=== PATIENT | male | born 1945 | race Caucasian/White ===

== ENCOUNTER 2022-01-31 13:39 | Outpatient (CLI) | payer MEDICARE, BC, SELFPAY ==
[2022-01-31 15:50] VITALS: BP 152/81; PULSE 81
[2022-01-31] MEDS: PERFLUTREN LIPID MICROSPHERES 2 ML VIAL IV (16:05)
--- NOTE | 2022-01-31 16:27 | PM.ST ---
Stress Test Note Date Date Seen: 01/31/22 Date of test: 01/31/22 Providers Referring provider: Argelia Cassidy Primary care provider: Argelia Cassidy Stress test physician: Ethan Cleveland Stress Test Note Stress test ordered: Stress Echo Indication for test: Shortness of breath, coronary disease Stress test medicine: [facility] Results discussion: Patient is a very nice 68-year-old gentleman who presents for the above test the cardiac stress test medical history form is reviewed, risks benefits and side effects of this test were discussed in detail, pretest EKG shows lots of artifact, but right bundle branch block configuration is noted. With some diffuse ST wave changes noted throughout all the leads. Rhythm is sinus, with a ventricular rate of 65 and a blood pressure 157/79. Standard Bridger protocol is employed over a time course of 5 minutes 51 seconds. Test is terminated because of fatigue, target predicted was obtained. Patient had no chest pain some mild fatigue, review of the EKG showed no obvious dysrhythmias, there is no ST wave changes suggestive of ischemia, patient recovered normally Impression: Negative electrographic portion of stress echo Follow up suggested: Follow-up with primary care suggested, review of the cardiology read of the echo is also suggested, patient left this testing facility in good condition. Were no complications.
== END 2022-01-31 13:40 | disposition home or self-care (01) ==
LOC: STRESS 13:40
PROVIDERS: PCP Family Medicine; Visit Provider Family Medicine
DX: R06.02 Shortness of breath (principal); I25.10 Atherosclerotic heart disease of native coronary artery without angina pectoris
CPT/HCPCS: 93016; 93325; 93351; Q9957

== ENCOUNTER 2022-06-06 09:44 | Outpatient (CLI) | payer MEDICARE, BC, SELFPAY ==
--- OUTSIDE RECORDS SUMMARY | 2022-06-06 09:50 | XMS_ITS | Clinical Summary ---
:1945 Author Organization [facility] [place] [address] Care Team Providers Name Role Phone Pcp, No Primary Care Provider Unavailable Allergies No known active allergies Medications Medication Sig Dispensed Refills Start Date End Date Status benazepril (LOTENSIN) Take 1 tablet by 0 07/07/2015 Active 20 mg tablet mouth once daily. furosemide (LASIX) 20 Take 1 tablet by 0 07/07/2015 Active mg tablet mouth every morning. metoprolol tartrate Take 1 tablet by 0 07/07/2015 Active (LOPRESSOR) 25 mg mouth 2 times tablet daily. potassium chloride Take 1 tablet by 0 07/07/2015 Active (K-DUR, KLOR-CON M10) mouth 2 times 10 mEq tablet daily with meals. atorvastatin (LIPITOR) 0 09/17/2017 Active 80 mg tablet aspirin (ECOTRIN) 81 mg Take 1 tablet by 0 9 Active enteric coated tablet mouth once daily with a meal. amLODIPine (NORVASC) 10 0 09/20/2020 Active mg tablet alfuzosin (UROXATRAL) Take 1 Tablet (10 90 Tablet 3 12/07/2021 Active 10 mg Sustained-Release mg) by mouth once tabletIndications: daily with a Benign non-nodular meal. 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 07/07/2015 symptoms Adjustment disorder with mixed anxiety and depressed m ood 04/14/2015 Social History Tobacco Use Types Packs/Day Years Used Date Smoking Tobacco: Never Smokeless Tobacco: Never Tobacco Cessation: Counseling Given: Yes Alcohol Use Standard Drinks/Week Comments Yes 0 (1 standard drink = 0.6 oz pure alcoho l) 2 drinks daily Sex Assigned at Date Recorded Not on file Obstetrics History Last Filed Vital Signs Vital Sign Reading Time Taken Comments Blood Pressure 152/76 11/29/2020 8:48 AM CDT Pulse 58 11/29/2020 8:48 AM CDT Temperature 36.4 ??C (97.5 ??F) 11/24/2019 8:24 AM CDT Respiratory Rate 18 07/29/2018 11:15 AM DIRECTOR OF ACCREDITATION Oxygen Saturation 95% 11/29/2020 8:48 AM CDT Inhaled Oxygen Concentration - - Weight 105 kg (231 lb 8 oz) 11/29/2020 8:48 AM CDT Height 177.8 cm (5' 10) 07/07/2015 8:08 AM DIRECTOR OF ACCREDITATION Body Mass Index 33.22 07/07/2015 8:08 AM DIRECTOR OF ACCREDITATION Plan of Treatment Health Maintenance Due Date Last Done Comments COVID-19 vaccine series (#1) 06/03/1946 Tdap 12/02/1954 Hepatitis C screening for age 18-79 12/02/1961 Tetanus booster 1963 Zoster (shingles) series for age 50+ (1 of 2) 12/02/1993 Medicare Wellness for age 65+ 12/02/2008 Pneumococcal series for age 65+ (1 - PCV) 12/02/2008 BMI (ht and wt on same day) for age 18+ 07/07/2016 07/07/19 16 Depression screening for age 12+ 07/14/2016 07/14/2015 Influenza for age 65+ 02/23/2022 Results Not on filefrom Last 3 Months Insurance Payer Benefit Plan / Subscriber ID Effective Dates Phone Addre ss Type Group BLUE CROSS BLUE CROSS [id number] 2016-Present [address] [address] [place], [place] [phone] Care Teams Underwater Welder Relationship Specialty Start Date End Date Pcp, No PCP - General 08/05/12 .
--- NOTE | 2022-06-06 10:00 | CRLHL7_ITS ---
For Patients: As a result of the Century Cures Act, medical imaging exams and procedure reports are released immediately into your electronic medical record. You may view this report before your referring provider. If you have questions, please contact your health care provider. Indication: MILD PERSISTENT ASTHMA UNCOMPLICATED. HX OF BLADDER OF CANCER Technique: Noncontrast CT chest including inspiration supine high-resolution images. Please note that all CT scans at this facility use dose modulation, iterative reconstruction, and/or weight-based dosing when appropriate to reduce radiation dose to as low as reasonably achievable. Comparison: 02/11/2015 Findings: Severe degenerative changes are present at both shoulders. Vascular calcifications are present including coronary artery calcifications. Sub centimeters simple cyst within the right hepatic lobe noted. Adrenal glands are stable. Cardiomegaly. No mediastinal, hilar or axillary adenopathy. No pleural or pericardial effusion. No suspicious pulmonary nodule. Mild linear subsegmental scarring within the lower lobes. Minimal thickening of the intralobular septa noted within the periphery of both lower lobes at both lung bases. Curvilinear scarring also present within medial aspect of the right lower lobe associated with prominent right anterolateral thoracic spine osteophytes. No pneumothorax. No pulmonary edema. Impression: Mild scarring within both lower lobes and mild interstitial fibrosis. Mild COPD/emphysema suspected. No acute infiltrate. Cardiomegaly with coronary artery calcifications. No CHF. Please note that all CT scans at this facility use dose modulation, iterative reconstruction, and/or weight-based dosing when appropriate to reduce radiation dose to as low as reasonably achievable. Dictated by Gordy Cotton MD @ 06/06/2022 10:59:13 AM (Electronically Signed)
== END 2022-06-06 09:45 | disposition home or self-care (01) ==
LOC: CT 09:46
PROVIDERS: PCP Family Medicine; Visit Provider Internal Medicine Pulmonary Disease
DX: R06.2 Wheezing (principal); J44.9 Chronic obstructive pulmonary disease, unspecified; J84.10 Pulmonary fibrosis, unspecified
CPT/HCPCS: 71250

== ENCOUNTER 2022-06-21 07:25 | Outpatient (CLI) | payer MEDICARE, BC, SELFPAY ==
[2022-06-21 10:45] LABS: Chloride* 104 mmol/L (96-114); Sodium* 142 mmol/L (135-149)
[2022-06-21 10:46] LABS: Potassium* 3.7 mmol/L (3.6-5.1)
[2022-06-21 10:48] LABS: Blood Urea Nitrogen* 13 mg/dL (7-30); Carbon Dioxide* 32 mmol/L (20-32); Cholesterol* 132 mg/dL (90-199); Creatinine* 0.7 mg/dL (0.5-1.5); Estimated Glomerular Filt Rate 94 ml/min; Glucose* 126 mg/dL (60-115)
[2022-06-21 10:49] LABS: Calcium* 9.3 mg/dL (8.4-10.6); HDL Cholesterol* 45 mg/dL (>=40); LDL Cholesterol Calculated 64 mg/dL (<100); Triglycerides* 113 mg/dL (40-149)
[2022-06-23 13:18] LABS: PSA Diagnostic* 0.48 ng/mL (0.10-4.00)
== END 2022-06-21 07:26 | disposition home or self-care (01) ==
LOC: NFLDREF 07:25
PROVIDERS: PCP Family Medicine; Visit Provider Family Medicine
DX: Z00.00 Encounter for general adult medical examination without abnormal findings (principal); E66.9 Obesity, unspecified; R73.03 Prediabetes; C61 Malignant neoplasm of prostate; I10 Essential (primary) hypertension
CPT/HCPCS: 80048; 80061; 84153

== ENCOUNTER 2023-06-20 08:25 | Outpatient (CLI) | payer MEDICARE, BC, SELFPAY | END 2023-06-20 08:26 | disposition home or self-care (01) | LOC: NFLDREF 06-21 09:28 | PROVIDERS: PCP Family Medicine; Referring Provider Family Medicine; Visit Provider Family Medicine | DX: E78.5 Hyperlipidemia, unspecified (principal); R73.03 Prediabetes; I10 Essential (primary) hypertension; Z12.5 Encounter for screening for malignant neoplasm of prostate | CPT/HCPCS: 80053; 80061; 84153 ==

== ENCOUNTER 2023-08-06 13:49 | Outpatient (CLI) | payer MEDICARE, BC, SELFPAY ==
--- OUTSIDE RECORDS SUMMARY | 2023-08-06 13:51 | XMS_ITS | Clinical Summary ---
Author Name Unknown Organization [facility] Address [place], [place] [address] Care Team Providers Care X Ray Inspector Name Role Phone Pcp, No Primary Care Provider Unavailabl e Allergies No known active allergies Medications Medication Sig Dispensed Refills Start Date End Date Status benazepril (LOTENSIN) 20 mg tablet Take 1 tablet by mouth once daily. 0 07/07/2015 Active furosemide (LASIX) 20 mg tablet Take 1 tablet by mouth every morning. 0 07/07/2015 Active metoprolol tartrate (LOPRESSOR) 25 mg tablet Take 1 tablet by mouth 2 times daily. 0 07/07/2015 Active potassium chloride (K-DUR, KLOR-CON M10) 10 mEq tablet Take 1 tablet by mouth 2 times daily with meals. 0 07/07/2015 Active atorvastatin (LIPITOR) 80 mg tablet 0 09/17/2017 Active aspirin (ECOTRIN) 81 mg enteric coated tablet Take 1 tablet by mouth once daily with a meal. 0 07/29/2018 Active amLODIPine (NORVASC) 10 mg tablet 0 09/20/2020 Active alfuzosin (UROXATRAL) 10 mg Sustained-Release tabletIndications:Riccardo gn non-nodular prostatic hyperplasia without lower urinary tract symptoms Take 1 Tablet (10 mg) by mouth once daily with a meal. 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 urinary tract symptoms 07/07/2015 Adjustment disorder with mixed anxiety and depre ssed mood 04/14/2015 Social History Tobacco Use Types Packs/Day Years Used Date Smoking Tobacco: Never Smokeless Tobacco: Never Tobacco Cessation:Counseling Given: Yes Alcohol Use Standard Drinks/Week Comments Yes 0 (1 standard drink = 0.6 oz pur e alcohol) 2 drinks daily Sex and Gender Information Value Date Recorded Sex Assigned at Not on file Gender Identity Not on file Sexual Orientation Not on file Obstetrics History Last Filed Vital Signs Vital Sign Reading Time Taken Comments Blood Pressure 152/76 11/29/2020 8:48 AM CDT Pulse 58 11/29/2020 8:48 AM CDT Temperature 36.4 ??C (97.5 ??F) 11/24/2019 8:24 AM CD T Respiratory Rate 18 07/29/2018 11:15 AM BLENDING PLANT OPERATOR Oxygen Saturation 95% 11/29/2020 8:48 AM CDT Inhaled Oxygen Concentration - - Weight 105 kg (231 lb 8 oz) 11/29/2020 8:48 AM C DT Height 177.8 cm (5' 10) 07/07/2015 8:08 AM BLENDING PLANT OPERATOR Body Mass Index 33.22 07/07/2015 8:08 AM BLENDING PLANT OPERATOR Plan of Treatment Upcoming Encounters Date Type Department Care Team (Late st Contact Info) Description 08/06/2023 2:00 PM BLENDING PLANT OPERATOR Ancillary Procedure [facility] [address] [place] [address] Health Maintenance Due Date Last Done Comments COVID-19 vaccine series (#1) 06/03/1946 Tdap 12/02/1954 Hepatitis C screening for age 18-79 12/02/1961 Tetanus booster 1963 Zoster (shingles) series for age 50+ (1 of 2) 12/02/18 94 Medicare Wellness for age 65+ 12/02/2008 Pneumococcal series for age 65+ (1 of 1 - PCV) 009 BMI (ht and wt on same day) for age 18+ 07/07/2016 0 07/07/2015 Depression screening for age 12+ 07/14/2016 07/14/19 16 Influenza for age 65+ 02/23/2023 Care Teams X Ray Inspector Relationship Specialty Start Date End Date Pcp, No . PCP - General 08/05/12
--- NOTE | 2023-08-06 15:00 | XR_ITS ---
Final Report Patient: MELISSA GARCIA Facility:?[facility] Patient ID:?[id number] Site Patient ID:?[id number]. Site :?1945 Study:?XRay Chest 2 VIEW-08/06/2023 5:30:37 PM Ordering Physician:JAKE Final Report: INDICATION: SOB. AORTIC VALVE INSUFFICIENCY TECHNIQUE: Chest 2 views COMPARISON: CT 06/06/2022, chest x-ray 12/01/2021 FINDINGS: Patchy areas of scarring are present bilaterally. Lung volumes are similar. Tortuosity of the aorta. No infiltrate or edema. No effusion or pneumothorax. Hypertrophic degenerative changes both shoulders. IMPRESSION: No CHF. Dictated by Gordy Cotton MD @ 08/10/2023 5:33:29 AM (Electronic Signature)
== END 2023-08-06 13:50 | disposition home or self-care (01) ==
PROVIDERS: PCP Family Medicine; Visit Provider Internal Medicine Pulmonary Disease
DX: R06.02 Shortness of breath (principal); I35.1 Nonrheumatic aortic (valve) insufficiency; I51.7 Cardiomegaly; I34.0 Nonrheumatic mitral (valve) insufficiency
CPT/HCPCS: 71046; 93306

== ENCOUNTER 2023-09-17 07:53 | Outpatient (CLI) | payer MEDICARE, BC, SELFPAY | END 2023-09-17 07:54 | disposition home or self-care (01) | LOC: NFLDREF 09-19 06:18 | PROVIDERS: PCP Family Medicine; Referring Provider Family Medicine; Visit Provider Family Medicine | DX: E11.9 Type 2 diabetes mellitus without complications (principal); R53.83 Other fatigue; I10 Essential (primary) hypertension | CPT/HCPCS: 80048; 82043; 82570 ==

== ENCOUNTER 2024-02-20 08:32 | Outpatient (CLI) | payer MEDICARE, BC, SELFPAY ==
--- OUTSIDE RECORDS SUMMARY | 2024-02-22 15:42 | XMS_ITS | Clinical Summary ---
Author Organization [facility] [facility] Address [place], [place] [address] Care Team Providers Care Civil Structural Engineer Name Role Phone Pcp, No Primary Care [...] times daily with meals. 0 07/07/2015 Active aspirin (ECOTRIN) 81 mg enteric coated tablet Take 1 tablet by mouth once daily with a meal. 0 07/29/2018 Active alfuzosin (UROXATRAL) 10 mg Sustained-Release tabletIndications:Riccardo gn non-nodular prostatic hyperplasia without lower urinary tract symptoms Take 1 Tablet (10 mg) by mouth once daily with a meal. 90 Tablet 3 12/07/2021 Active atorvastatin (LIPITOR) 80 mg tablet Take 1 Tablet (80 mg) by mouth at bedtime. 09/19/2023 Active amLODIPine (NORVASC) 5 mg tabletIndications:HTN (hypertension) Take 1 Tablet (5 mg) by mouth once daily. 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 lower urinary tract symptoms 07/07/2015 Adjustment disorder with mixed anxiety and depre ssed mood 04/14/2015 Encounters Date Type Department Care Team Description 01/22/2024 Refill [facility] [place] [address] [place] [phone] Myriam Saucedo MD Refill Request (Montelukast) 01/02/2024 Refill [facility] [place] [address] [place] [phone] Myriam Saucedo MD Refill Request (Albuterol Hfa) from Last 3 Months Social History Tobacco Use Types Packs/Day Years Used Date Smoking Tobacco: Never Smokeless Tobacco: Never Tobacco Cessation:Counseling Given: Yes Alcohol Use Standard Drinks/Week Comments Yes 0 (1 standard drink = 0.6 oz pur e alcohol) 2 drinks daily Social Connections Answer Date Recorded Frequency of Communication with Friends and Fami ly Not on file 09/21/2023 Sex and Gender Information Value Date Recorded Sex Assigned at Not on file Gender Identity Not on file Sexual Orientation Not on file Obstetrics History Last Filed Vital Signs Vital Sign Reading Time Taken Comments Blood Pressure 140/72 09/21/2023 4:18 PM CDT Pulse 40 09/21/2023 4:18 PM CDT Temperature 36.4 ??C (97.5 ??F) 11/24/2019 8:24 AM CD T Respiratory Rate 14 09/21/2023 4:18 PM CDT Oxygen Saturation 95% 11/29/2020 8:48 AM CDT Inhaled Oxygen Concentration - - Weight 119.7 kg (264 lb) 09/21/2023 4:18 PM CDT Height 177.8 cm (5' 10) 07/07/2015 8:08 AM MANAGER ERP Body Mass Index 37.88 07/07/2015 8:08 AM MANAGER ERP Plan of Treatment Upcoming Encounters Date Type Department Care Team (Late st Contact Info) Description 04/24/2024 11:05 AM CDT Office Visit [facility] [place] [address] [facility] [address] [place] [phone] Myriam Saucedo MD [address] [facility] [address] [place] [address] Health Maintenance Due Date Last Done Comments Pneumococcal series for age 65+ (1 of 2 - PCV) 950 Tdap 12/02/1954 Tetanus booster 1963 Zoster (shingles) series for age 50+ (1 of 2) 12/02/18 94 Medicare Wellness for age 65+ 12/02/2008 BMI (ht and wt on same day) for age 18+ 07/07/2016 0 07/07/2015 Depression screening for age 12+ 07/14/2016 07/14/19 16 COVID-19 vaccine series (2022-24 season) 3 Influenza for age 65+ 02/24/2024 Care Teams Civil Structural Engineer Relationship Specialty Start Date End Date Pcp, No . PCP - General 08/05/12
== END 2024-02-20 08:33 | disposition home or self-care (01) ==
LOC: NFLDREF 02-22 15:41
PROVIDERS: PCP Family Medicine; Referring Provider Family Medicine; Visit Provider Family Medicine
DX: I10 Essential (primary) hypertension (principal); E11.9 Type 2 diabetes mellitus without complications
CPT/HCPCS: 80053

== ENCOUNTER 2024-03-17 09:50 | Outpatient (CLI) | payer MEDICARE, BC, SELFPAY ==
--- OUTSIDE RECORDS SUMMARY | 2024-03-17 09:53 | XMS_ITS | Clinical Summary ---
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 90 Tablet 3 12/07/2021 Active atorvastatin (LIPITOR) 80 mg tablet Take 1 Tablet (80 mg) by mouth at bedtime. 09/19/2023 Active amLODIPine (NORVASC) 5 mg tabletIndications: HTN (hypertension) Take 1 Tablet (5 mg) by mouth once daily. 90 Tablet 3 09/21/2023 Active montelukast (SINGULAIR) 10 mg tabletIndications: Mild persistent asthma in adult without complication TAKE 1 TABLET BY MOUTH EVERY DAY IN THE EVENING 90 Tablet 02/05/2024 Active albuterol HFA (PRO-AIR; VENTOLIN; PROVENTIL) 90 mcg/actuation inhalerIndications :Chronic obstructive pulmonary disease, unspecified COPD type (HC) INHALE 2 PUFFS BY MOUTH EVERY 4 TO 6 HOURS NEEDED 6.7 g 03/13/2024 Active albuterol HFA (PRO-AIR; VENTOLIN; PROVENTIL) 90 mcg/actuation inhalerIndications :Chronic obstructive pulmonary disease, unspecified COPD type (HC) INHALE 2 PUFFS BY MOUTH EVERY 4 TO 6 HOURS NEEDED 1 Each 3 01/02/2024 03/13/2024 Discontinued Active Problems Problem Noted Date Diagnosed Date Malignant neoplasm of urinary bladder 07/07/2015 Benign non-nodular prostatic hyperplasia without lower urinary tract symptoms 07/07/2015 Adjustment disorder with mixed anxiety and depre ssed mood 04/14/2015 Encounters Date Type Department Care Team Description 03/13/2024 Refill [facility] [place] [address] [place] [phone] Jerry Slaughter MD Refill Request (Albuterol Hfa) 01/22/2024 Refill [facility] [place] [address] [place] [phone] Myriam Saucedo MD Refill Request (Montelukast) 01/02/2024 Refill [facility] [place] [address] [place] [phone] Myriam Saucedo MD Refill Request (Albuterol Hfa) [...] 177.8 cm (5' 10) 07/07/2015 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 Body Mass Index 37.88 07/07/2015 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 Plan of Treatment Upcoming Encounters Date Type Department Care Team (Late st Contact Info) Description 04/24/2024 11:05 AM CDT Office Visit [facility] [place] [address] [place] [phone] Myriam Saucedo MD [address] [place] [address] Health Maintenance Due Date Last Done Comments Pneumococcal series for age 65+ (1 of 2 - PCV) 950 Tdap 12/02/1954 Tetanus booster 1963 Zoster (shingles) series for age 50+ (1 of 2) 12/02/18 94 RSV vaccine for adults or pr egnancy (1 - 1-dose 60+ series) 2003 Medicare Wellness for age 65+ 12/02/2008 BMI (ht and wt on same day) for age 18+ 07/07/2016 0 07/07/2015 Depression screening for age 12+ 07/14/2016 07/14/19 16 COVID-19 vaccine series (2022-24 season) 4 Influenza for age 65+ 02/24/2024 Care Teams Under Sheriff Relationship Specialty Start Date End Date Pcp, No . PCP - General 08/05/12
--- NOTE | 2024-03-17 11:42 | W.ANESCHARGE ---
Anesthesia Charges Start Date/Time Anesthesia Start Date: 03/17/24 Anesthesia Start Time: 11:06 Stop Date/Time Anesthesia Stop Date: 03/17/24 Anesthesia Stop Time: 11:39
--- NOTE | 2024-03-17 12:08 | W.ANESCHARGE ---
Anesthesia Charges Start Date/Time Anesthesia Start Date: 03/17/24 Anesthesia Start Time: 11:06 Stop Date/Time Anesthesia Stop Date: 03/17/24 Anesthesia Stop Time: 11:39
== END 2024-03-17 09:51 | disposition home or self-care (01) ==
LOC: OP CLINIC 09:51
PROVIDERS: PCP Family Medicine; Visit Provider Surgery
DX: Z12.11 Encounter for screening for malignant neoplasm of colon (principal); D12.0 Benign neoplasm of cecum; D12.5 Benign neoplasm of sigmoid colon; D12.8 Benign neoplasm of rectum; K57.30 Diverticulosis of large intestine without perforation or abscess without bleeding; Z86.010 Personal history of colon polyps
CPT/HCPCS: 00811; 45385; 88305; J2704

== ENCOUNTER 2024-06-26 09:40 | Outpatient (CLI) | payer MEDICARE, BC, SELFPAY | END 2024-06-26 09:41 | disposition home or self-care (01) | LOC: NFLDREF 06-28 11:38 | PROVIDERS: PCP Family Medicine; Referring Provider Family Medicine; Visit Provider Family Medicine | DX: E78.2 Mixed hyperlipidemia (principal); E11.9 Type 2 diabetes mellitus without complications; N40.0 Benign prostatic hyperplasia without lower urinary tract symptoms; I10 Essential (primary) hypertension; R53.83 Other fatigue; E78.5 Hyperlipidemia, unspecified; Z12.5 Encounter for screening for malignant neoplasm of prostate | CPT/HCPCS: 80053; 80061; 82043; 82570; G0103 ==

== ENCOUNTER 2024-07-14 08:41 | Outpatient (CLI) | payer MEDICARE, BC, SELFPAY | END 2024-07-14 08:42 | disposition home or self-care (01) | LOC: RAD 08:42 | PROVIDERS: PCP Family Medicine; Visit Provider Internal Medicine Cardiovascular Disease | DX: I77.810 Thoracic aortic ectasia (principal); I51.7 Cardiomegaly; I35.1 Nonrheumatic aortic (valve) insufficiency; I34.0 Nonrheumatic mitral (valve) insufficiency; I07.1 Rheumatic tricuspid insufficiency | CPT/HCPCS: 93306 ==

== ENCOUNTER 2024-07-29 08:02 | Outpatient (CLI) | payer MEDICARE, BC, SELFPAY ==
[2024-07-29] MEDS: REGADENOSON 0.4 MG/5 ML SYRINGE IVP (09:58)
[2024-07-29 09:59] VITALS: BP 188/122; PULSE 94; RESP 18
[2024-07-29] MEDS: SODIUM CHLORIDE 0.9 % (FLUSH) 10 ML SYRINGE IVF (09:59)
--- NOTE | 2024-07-29 11:15 | W.PM.STED ---
Stress Test Note Date Date Seen: 07/29/24 Date of test: 07/29/24 Providers Primary care provider: Argelia Cassidy Stress test physician: Ethan Cleveland Stress Test Note Stress test ordered: Stress Myoview Indication for test: Atherosclerotic heart disease Stress test medicine: None Results discussion: This very nice 78-year-old gentleman presents for the above test after discussion the risks benefits and side effects he would like to proceed, stress Myoview was ordered. Cardiac stress test medical history form is reviewed in detail. Pretest EKG shows a lot of artifact, ventricular rate is 89, rhythm is indeterminate due to the artifact. Blood pressure 193 and 104, standard walking Myoview protocol is achieved over a time period of 5 minute. He achieved a metabolic equivalent of 1.6 Mets with a maximum heart rate of 115, it was stated that he got to 143, but artifact interfered with this. Test is terminated because of shortness of breath and fatigue. He did not develop any chest pain. No appreciable ST wave changes are noted, but test is indeterminate due to artifact. Test is also sub maximal. Impression: Negative electrographic portion of stress test, test is of questionable use due to the fact that is sub maximal, and lots artifact. Follow up suggested: Await test results, nuclear portion will be read by Cardiology and nuclear Medicine. Clinical correlation with this will be needed.
== END 2024-07-29 10:01 | disposition home or self-care (01) ==
LOC: STRESS 08:04
PROVIDERS: PCP Family Medicine; Visit Provider Family Medicine
DX: I25.10 Atherosclerotic heart disease of native coronary artery without angina pectoris (principal)
CPT/HCPCS: 78452; 93016; 93017; A9500; J2785

== ENCOUNTER 2024-10-16 07:49 | Outpatient (CLI) | payer MEDICARE, BC, SELFPAY | END 2024-10-16 07:50 | disposition home or self-care (01) | LOC: CT 07:50 | PROVIDERS: PCP Family Medicine; Visit Provider Orthopaedic Surgery Sports Medicine | DX: M19.012 Primary osteoarthritis, left shoulder (principal); Z01.818 Encounter for other preprocedural examination | CPT/HCPCS: 73200 ==

== ENCOUNTER 2024-10-30 09:57 | Outpatient (CLI) | payer MEDICARE, BC, SELFPAY | END 2024-10-30 09:58 | disposition home or self-care (01) | LOC: NFLDREF 09:58 | PROVIDERS: PCP Family Medicine; Visit Provider Family Medicine | DX: Z00.01 Encounter for general adult medical examination with abnormal findings (principal); E78.2 Mixed hyperlipidemia | CPT/HCPCS: 80048 ==

== ENCOUNTER 2024-11-06 14:39 | Outpatient (CLI) | payer MEDICARE, BC, SELFPAY ==
[2024-11-06 15:17] LABS: Chloride* 101 mmol/L (96-114); Sodium* 141 mmol/L (135-149)
[2024-11-06 15:20] LABS: Blood Urea Nitrogen* 14 mg/dL (7-30); Calcium* 9.2 mg/dL (8.4-10.6); Carbon Dioxide* 32 mmol/L (20-32); Creatinine* 0.8 mg/dL (0.5-1.5); Estimated Glomerular Filt Rate 89 ml/min; Glucose* 143 mg/dL (60-115); Potassium* 3.2 mmol/L (3.6-5.1)
[2024-11-06 15:29] LABS: Anion Gap 8 mEq/L (7-15)
== END 2024-11-06 14:40 | disposition home or self-care (01) ==
LOC: LAB 14:42
PROVIDERS: PCP Family Medicine; Visit Provider Internal Medicine
DX: I48.0 Paroxysmal atrial fibrillation (principal); Z13.6 Encounter for screening for cardiovascular disorders; I25.10 Atherosclerotic heart disease of native coronary artery without angina pectoris; I10 Essential (primary) hypertension; E78.2 Mixed hyperlipidemia; E11.9 Type 2 diabetes mellitus without complications; Z79.84 Long term (current) use of oral hypoglycemic drugs; J45.30 Mild persistent asthma, uncomplicated
CPT/HCPCS: 36415; 80048

== ENCOUNTER 2024-11-10 08:12 | Day surgery (SDC) | payer MEDICARE, BC, SELFPAY ==
[2024-11-10] VITALS (30 sets, daily range): BP systolic 117–155; BP diastolic 71–97; PULSE 44–95; RESP 12–18; TEMP 35.7–36.4; O2SAT 90–96; BMI 39.3
[2024-11-10] MEDS: OXYCODONE (CR) 10 MG TAB.ER.12H PO (08:31)
--- NOTE | 2024-11-10 08:42 | W.PM.H&PU ---
History & Physical Update History & Physical Update H&P Reviewed and patient assessed: No changes noted
[2024-11-10] MEDS: SODIUM CHLORIDE 0.9 % (FLUSH) 10 ML SYRINGE IVF (09:00)
[2024-11-10] MEDS: LACTATED RINGERS 1000 ML 1,000 ML 100 ML IV (09:00)
[2024-11-10] MEDS: ACETAMINOPHEN 500 MG TABLET 1000 MG PO ×3 (09:00→23:30)
[2024-11-10] MEDS: MIDAZOLAM HCL 1 MG/ML inj IVP (09:45)
[2024-11-10] MEDS: fentaNYL 100 MCG/2 ML inj IVP (09:45)
--- NOTE | 2024-11-10 09:45 | SUR.PREOP ---
TIME?OUT:?0946 PT/RN/MDA?VERIFICATION?OF?SURGICAL?SITE-LEFT SHOULDER, NERVE BLOCK, ?PROCEDURE,?AND?CONSENT OBTAINED?PRIOR?TO?INVASIVE?PROCEDURE.
--- NOTE | 2024-11-10 10:07 | P.ANES_ITS ---
Anesthesia Charges Start Date/Time Anesthesia Start Date: 11/10/24 Anesthesia Start Time: 11:54 Stop Date/Time Anesthesia Stop Date: 11/10/24 Anesthesia Stop Time: 15:08 Summary Extremes of Age - Over 70 or under 1: MDA Coding CPT Codes CPT Codes: ANESTH SHOULDER REPLACEMENT - 21634 ([id number]) P3 - PATIENT W/SEVERE SYS DISEASE, QK - DELICATESSEN GOODS STOCK CLERK 2-4 CNCRNT ANES PROC, QX - CAMPGROUND HAND SVC W/ MD MED DIRECTION Additional Codes: Summary - Extremes of Age - Over 70 or under 1: MDA ([id number])
--- NOTE | 2024-11-10 10:07 | W.PM.NB ---
Nerve Block Nerve Block Time Seen by Provider: 09:49 Date Seen: 11/10/24 Type of block requested by surgeon for post-operative analgesia: supraclavicular Side: left Time out performed: Yes Verification of patient name: Yes Verification of date of : Yes Site marking: site marked Name of person performing procedure: Chuck Continuous monitoring Was continuous monitoring of O2 sat, B/P, naphthol soaping machine operator, recorded every 15 minutes?: Yes Procedure Checklist: sterile prep, needles and gloves Ultrasound guided. Images saved: Yes Medications given in 5ml increments after negative aspiration: Marcaine %: 0.25 mL: 5 Needle gauge: 22 and Exparel mL: 10 Patient tolerated procedure well: Yes Block Charges Block Charge (with Pro Fee): Brachial Plexus Use of Ultrasound Machine for Block: Yes- US Guidance/pain block
--- NOTE | 2024-11-10 10:07 | W.ANESCHARGE ---
Anesthesia Charges Start Date/Time Anesthesia Start Date: 11/10/24 Anesthesia Start Time: 11:54 Stop Date/Time Anesthesia Stop Date: 11/10/24 Anesthesia Stop Time: 15:08 Summary Extremes of Age - Over 70 or under 1: MDA Coding CPT Codes CPT Codes: ANESTH SHOULDER REPLACEMENT - 64335 ([id number]) P3 - PATIENT W/SEVERE SYS DISEASE, QK - OYSTER BUYER 2-4 CNCRNT ANES PROC, QX - GROCERY CHECKER SVC W/ MD MED DIRECTION Additional Codes: Summary - Extremes of Age - Over 70 or under 1: MDA ([id number])
--- NOTE | 2024-11-10 12:06 | CRLHL7_ITS ---
For Patients: As a result of the Cures Act, medical imaging exams and procedure reports are released immediately into your electronic medical record. You may view this report before your referring provider. If you have questions, please contact your health care provider. 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 Bone alignment is normal. No sign of acute fracture. Postop changes are within normal limits. Dictated by Gordy Cotton MD @ 11/11/2024 9:42:27 AM (Electronically Signed)
[2024-11-10] MEDS: TRANEXAMIC ACID 100 MG/ML INJ 1000 MG IV (12:15)
[2024-11-10] MEDS: CEFAZOLIN 1 GM inj IVP (12:15)
--- NOTE | 2024-11-10 12:16 | P.ANES_ITS ---
Anesthesia Charges Start Date/Time Anesthesia Start Date: 11/10/24 Anesthesia Start Time: 11:54 Stop Date/Time Anesthesia Stop Date: 11/10/24 Anesthesia Stop Time: 15:08 Summary Extremes of Age - Over 70 or under 1: TILESETTER Coding CPT Codes CPT Codes: ANESTH SHOULDER REPLACEMENT - 36964 ([id number]) P3 - PATIENT W/SEVERE SYS DISEASE, QK - COTTON BALL MACHINE TENDER 2-4 CNCRNT ANES PROC, QX - TILESETTER SVC W/ MD MED DIRECTION Additional Codes: Summary - Extremes of Age - Over 70 or under 1: TILESETTER ([id number])
--- NOTE | 2024-11-10 12:16 | W.ANESCHARGE ---
Anesthesia Charges Start Date/Time Anesthesia Start Date: 11/10/24 Anesthesia Start Time: 11:54 Stop Date/Time Anesthesia Stop Date: 11/10/24 Anesthesia Stop Time: 15:08 Summary Extremes of Age - Over 70 or under 1: OPERATIONS SUPPORT SPECIALIST Coding CPT Codes CPT Codes: ANESTH SHOULDER REPLACEMENT - 93581 ([id number]) P3 - PATIENT W/SEVERE SYS DISEASE, QK - PATIENT SERVICE REPRESENTATIVE 2-4 CNCRNT ANES PROC, QX - OPERATIONS SUPPORT SPECIALIST SVC W/ MD MED DIRECTION Additional Codes: Summary - Extremes of Age - Over 70 or under 1: OPERATIONS SUPPORT SPECIALIST ([id number])
--- NOTE | 2024-11-10 14:32 | P.ORPRC_ITS ---
Procedure Note Date of procedure: 11/10/24 Procedure: PREOPERATIVE DIAGNOSIS: 1. Left shoulder osteoarthrosis, primary, severe with poor rotator quality/integrity POSTOPERATIVE DIAGNOSIS: 1. Left shoulder osteoarthrosis,[ primary, severe with poor cuff tissue quality PROCEDURE: 1. Left reverse shoulder arthroplasty. SURGEON: Cj Moran MD. SENIOR [employer]IS[employer] NETWORK ENGINEER: Theo Skelton PA-C - Of note, a skilled personal banking assistant was critical for this case to aid in patient positioning, tissue retraction, limb manipulation/positioning, retraction for glenoid exposure, which was challenging, awareness and protection of critical structures, and closure. ANESTHESIA: General plus supraclavicular block EBL: 200 ml IMPLANTS: DJ0 surgical Altivate humeral stem size 12 standard shell, short with P2 porous coating vitamin E neutral poly small socket insert Augmented altered a reverse augmented glenoid base plate P2 porous coating 30 mm central 6.5 mm screw 4 perimeter locking screws Poon taper 32 neutral glenosphere with retaining screw COMPLICATIONS: None evident INDICATIONS: The patient is a pleasant 78-year-old male who has experienced severe left shoulder pain and difficulty with use. Workup included imaging which revealed severe osteoarthrosis along with concern for rotator cuff quality. Physical exam was consistent with associated pain. Given the deformity, the dysfunction, and the pain, and failure of nonoperative management, recommendation was made for surgery. DESCRIPTION OF PROCEDURE: Following a thorough discussion of risks, benefits, and alternatives, consent was obtained and the left shoulder was marked. The patient was brought to the operating room and placed supine on the operating table. Induction of anesthesia was undertaken. 2 g IV Ancef and 1 g tranexamic acid was administered within 1 hr of incision preoperatively. Appropriate time-out was performed identifying proper patient, site, and procedure. The operative extremity was prepped and draped in the appropriate sterile fashion using ChloraPrep after the patient was positioned in the lazy beach chair position with head in neutral alignment and all bony prominences well padded. A longitudinal incision was made for deltopectoral approach. Deltoid was retracted laterally. Cephalic vein was identified and retracted laterally as well. Vein was spared/protected throughout the case. The clavipectoral fascia was identified and divided longitudinally staying lateral to the conjoined tendon / coracoid. The conjoined tendon was protected with a blunt Hohmann. The long head of the biceps tendon was identified and the bicipital sheath released. The upper 1/4 of the pectoralis major was also released from its insertion. Long head of biceps tendon underwent a biceps tenotomy. The rotator cuff was inspected and found to have good integrity with the subscapularis but fair integrity with a supraspinatus], and a decision for a reverse shoulder arthroplasty was confirmed. A subscapularis cuff of tissue was left via tenotomy for later repair with the remaining subscapularis released in a subperiosteal fashion with the Bovie. This was tagged for later repair. The 3 sisters were cauterized. The upper subscapularis was released from the capsule with a curved Roldan scissors towards the glenoid. The inferior subscapularis was divided from the capsular tissue on its caudal surface with particular caution for the axillary nerve. This was palpated anterior to the subscapularis both prior to and near the finish of the case. Inferior humeral head osteophytes were excised with caution taken throughout the case with regards to the axillary nerve. The humerus was disloc ated, and humeral head cut completed. Then a protector plate was applied. We turned our attention to the glenoid. The humerus was retracted posteriorly. The subscap was protected anteriorly and the labrum/long head biceps origin was excised circumferentially. The capsule was released along the anterior and inferior portions of the glenoid cautiously with a Gaona elevator being careful not to penetrate deep. The glenoid had appropriate exposure, and was prepared with the cannulated system with a target of approximately 5-10? of inferior tilt and neutral anteversion (patient had 22 ? of retroversion initially). Utilizing the match Point 3D printed guide, the guide pin was placed. The 3D printed jig removed and after placing the guide pin, the tap was placed followed by the glenoid reaming. The real base plate was opened, and inserted, and excellent compression/purchase was achieved with the central screw. Peripheral screws were then drilled, measured, and placed. The glenosphere was then placed consistent with the preoperative plan utilizing the above noted glenosphere. After securing the glenosphere with the locking, torque limited screw, attention was turned back to the humerus. A canal finder was placed followed by various reamers by hand. The real humeral stem was then opened and inserted with excellent metaphyseal fit and stability. Trial poly was placed and the shoulder reduced. Excellent reduction and stability achieved with appropriate tension on the conjoined tendon. At this stage, trial implants were removed, and the real implants inserted and the s houlder reduced. A 3 minute Betadine soak was performed followed by a thorough irrigation with normal saline. Subscapularis was repaired with #1 PDS to the cuff of tissue on the lesser tuberosity. Excellent reapproximation of tissue achieved. Hemostasis was found to be appropriate. The deltopectoral interval was reapproximated with 0 Vicryl, subcutaneous and subcuticular closure was then performed with number 2-0 Vicryl and 4-0 Monocryl, respectively. A skilled personal banking assistant was critical for this case to aid in patient positioning, tissue retraction, limb manipulation/positioning, retraction for glenoid exposure, which was challenging, awareness and protection of critical structures, and closure. PLAN: 1. Sling at all times for the operative upper extremity. 2. AROM of elbow, forearm, wrist, and digits as tolerated. 3. PT/OT consults for education and assistance. 4. Social consult for discharge planning. 5. 23 hr perioperative antibiotics. 6. Early ambulation, and SCDs for DVT prophylaxis. 7. Admit to the hospital for the above 8. Analgesics p.r.n.
--- NOTE | 2024-11-10 16:47 | P.IMCN_ITS ---
Date of Consult Consult date: 11/10/24 Requesting Physician: Orthopedics Primary Care Provider: Argelia Cassidy MD Consult Narrative Narrative: HOSPITALIST CONSULT Procedure: Left reverse shoulder arthroplasty. SURGEON: Cj Moran MD. ANESTHESIA: General plus supraclavicular block EBL: 200 ml COMPLICATIONS: None evident The hospital medicine team was asked by the orthopedic surgery team to manage the patient's CAD, FRANK, DM, HTN There have been no perioperative complications. I have updated and reviewed the active medical problems, past medical history, past surgical history, social history, allergies and medications in our electronic EMR. This includes a cross reference to care everywhere in [facility] and with [employer] [facility] databases. PHYSICAL EXAM: CODE STATUS: FULL CODE CONSTITUTIONAL: Conversive, good historian. A/O. Knows setting and context. VITAL SIGNS: see record. HEENT: Normocephalic, atraumatic. PERRL, EOMI, conjunctivae pink, no scleral icterus. Ears and nose externally normal. Pharynx normal. NECK: No JVD. No carotid bruit, no thyromegaly, no adenopathy. CHEST: Clear to auscultation bilaterally HEART: S1 and S2 normal. ABDOMEN: Flat, soft, nontender. Normal bowel sounds. Moderately obese. EXTREMITIES: No edema. MUSCULOSKELETAL: Left shoulder SDI. NEURO: Cranial nerves intact. Mentation normal. Normal affect. SKIN: No rashes, petechiae, concerning changes PSYCHIATRIC: Mentation normal. INVESTIGATIONS: EMR Reviewed; Pre-OP Reviewed DISPOSITION: DVT: N/A GI: PO intake [facility] Medical History (Updated 11/10/24 @ 16:53 by Leona Taveras MD) SOB (shortness of breath) on exertion ?R06.02 - Shortness of breath (ICD-10) Bladder cancer (2011) ?C67.9 - Malignant neoplasm of bladder, unspecified (ICD-10) Osteoarthritis of right shoulder ?M19.011 - Primary osteoarthritis, right shoulder (ICD-10) Normal cardiac stress test (07/2024) Type 2 diabetes mellitus (06/26/23) ?E11.9 - Type 2 diabetes mellitus without complications (ICD-10) Mild persistent asthma (2021) ?J45.30 - Mild persistent asthma, uncomplicated (ICD-10) Mild ascending aorta dilatation (~2018) ?I77.810 - Thoracic aortic ectasia (ICD-10) Normal cardiac stress test (01/2022) Tubular adenoma of colon (2019) ?D12.6 - Benign neoplasm of colon, unspecified (ICD-10) Rosacea ?L71.9 - Rosacea, unspecified (ICD-10) Prediabetes (2018) ?R73.03 - Prediabetes (ICD-10) Obstructive sleep apnea treated with continuous positive airway pressure (CPAP) ?G47.33 - Obstructive sleep apnea (adult) (pediatric) (ICD-10) ?Z99.89 - Dependence on other enabling machines and devices (ICD-10) Obesity with body mass index (BMI) of 30.0 to 39.9 ?E66.9 - Obesity, unspecified (ICD-10) Malignant neoplasm of urinary bladder (2011) ?C67.9 - Malignant neoplasm of bladder, unspecified (ICD-10) Major depressive disorder with single episode ?F32.9 - Major depressive disorder, single episode, unspecified (ICD-10) Hyperlipidemia (02/16/09) ?E78.5 - Hyperlipidemia, unspecified (ICD-10) History of malignant neoplasm of bladder (2011) ?Z85.51 - Personal history of malignant neoplasm of bladder (ICD-10) Essential hypertension ?I10 - Essential (primary) hypertension (ICD-10) Coronary artery disease (02/16/09) ?I25.10 - Atherosclerotic heart disease of [place] coronary artery without angina pectoris (ICD-10) Benign prostatic hyperplasia ?N40.0 - Benign prostatic hyperplasia without lower urinary tract symptoms (ICD-10) Surgical History (Updated 11/10/24 @ 16:53 by Leona Taveras MD) Status post reverse total replacement of left shoulder ?Z96.612 - Presence of left artificial shoulder joint (ICD-10) History of transurethral resection of prostate (2012) ?Z98.890 - Other specified postprocedural states (ICD-10) ?Z90.79 - Acquired absence of other genital organ(s) (ICD-10) History of meniscectomy of left knee (04/19/12) ?Z98.890 - Other specified postprocedural states (ICD-10) Family History Prostate cancer Brother Alcoholism Son Myocardial infarction Mother, Onset Age: 78 Social History Narrative: , 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 , member at 48N non-smoker social drinker- 7/week What is your current living situation?: I presently have a place to live Problems where you live: no known problems In the past 12 months, utilities in danger of being shut off: no In past 12 months, lack of transportation kept you from medical appts, meetings, work, or getting things needed for daily living: no In the past 12 mos, have been you worried that your food would run out before you had money to buy more?: never true In the past 12 mos, the food you bought just didn't last and you didn't have money to buy more?: never true Highest level of school completed/degree received: Associate degree: occupational, technical, vocational program Smoking Status: Never smoker How often do you have a drink containing alcohol: 4 or more times a week Alcohol type: beer, wine and hard liquor How many standard drinks containing alcohol do you have on a typical day: 1 or 2 How often do you have six or more drinks on one occasion: Never AUDIT-C Alcohol total score: 4 Non-prescribed substance use: denies use Caffeine: Yes (most days coffee) How often does anyone, including family, friends and others, physically hurt you : never How often does anyone, including family, friends and others, insult or talk down to you: never How often does anyone, including family, friends and others, threaten you with harm: never How often does anyone, including family, friends and others, scream or curse at you: never service: Yes ([employer]) Meds Home Medications and Allergies Home Medications ?Medication ?Instructions ?Recorded ?Confirmed ?Type aspirin 81 mg tablet,delayed 81 mg PO BID 12/22/21 11/10/24 History release montelukast 10 mg tablet 10 mg PO QDAY 06/23/22 11/10/24 History albuterol sulfate 90 mcg/actuation 2 puff inhalation Q4H PRN 07/10/22 11/10/24 Rx aerosol inhaler bronchospasm #8.5 grams alfuzosin 10 mg tablet,extended 10 mg PO QDAY 11/22/22 11/10/24 History release 24 hr Trelegy Ellipta PO 02/27/24 10/30/24 History amlodipine 10 mg tablet 10 mg PO DAILY #90 tabs 07/01/24 11/10/24 Rx atorvastatin 40 mg tablet 40 mg PO .Bedtime #90 tabs 07/01/24 11/10/24 Rx benazepril 20 mg tablet 20 mg PO BID #180 tabs 07/01/24 11/10/24 Rx furosemide 20 mg tablet 40 mg (2 x 20 mg) PO DAILY #180 07/01/24 11/10/24 Rx tabs metformin 500 mg tablet,extended 500 mg PO BID #180 tabs 07/01/24 11/10/24 Rx release 24 hr metoprolol tartrate 25 mg tablet 25 mg PO BID #180 tabs 07/01/24 11/10/24 Rx potassium chloride 10 mEq 10 meq PO BID #180 tabs 07/01/24 11/10/24 Rx tablet,extended release(part/cryst) acetaminophen 500 mg capsule 500 - 1,000 mg (1 - 2 x 500 mg) PO 11/10/24 Rx Q6H PRN #100 caps oxycodone 5 mg tablet 2.5 - 5 mg (0.5 - 1 x 5 mg) PO 11/10/24 Rx Q4-6H PRN pain #42 tabs sennosides 8.6 mg-docusate sodium 1 - 4 tab-cap (1 - 4 x 8.6-50 mg) 11/10/24 Rx 50 mg tablet (Senna-S) PO BID PRN constipation #60 tabs Allergies Allergy/AdvReac Type Severity Reaction Status Date / Time No Known Drug Allergies Allergy Verified 11/10/24 08:35 Exam Const: Vital Signs, click to edit/add: Vital Signs - 24 hr 11/10/24 09:17 11/10/24 09:45 11/10/24 09:50 Temperature 96.8 F L Pulse Rate 66 62 60 Respiratory Rate 18 16 16 Blood Pressure 138/95 H 146/95 H 131/74 Pulse Oximetry 94 94 95 Oxygen Delivery Me thod Room Air Room Air Nasal Cannula Oxygen Flow Rate 3 11/10/24 09:55 11/10/24 10:00 11/10/24 10:05 Temperature Pulse Rate 52 L 61 51 L Respiratory Rate 16 16 14 Blood Pressure 121/75 117/71 119/74 Pulse Oximetry 94 95 95 Oxygen Delivery Me thod Nasal Cannula Nasal Cannula Nasal Cannula Oxygen Flow Rate 3 3 3 11/10/24 10:15 11/10/24 10:30 11/10/24 10:45 Temperature Pulse Rate 54 L 51 L 50 L Respiratory Rate 16 16 16 Blood Pressure 119/73 121/71 123/80 Pulse Oximetry 94 93 95 Oxygen Delivery Me thod Nasal Cannula Nasal Cannula Nasal Cannula Oxygen Flow Rate 3 3 3 11/10/24 11:00 11/10/24 11:30 11/10/24 11:50 Temperature Pulse Rate 52 L 48 L 49 L Respiratory Rate 16 16 14 Blood Pressure 120/74 129/93 H 129/76 Pulse Oximetry 96 94 96 Oxygen Delivery Me thod Nasal Cannula Nasal Cannula Nasal Cannula Oxygen Flow Rate 3 3 3 11/10/24 15:03 11/10/24 15:10 11/10/24 15:15 Temperature 97.6 F Pulse Rate 44 L 78 79 Respiratory Rate 12 12 14 Blood Pressure 142/97 H 147/85 H 135/91 H Pulse Oximetry 93 92 92 Oxygen Delivery Me thod Nasal Cannula Nasal Cannula Nasal Cannula Oxygen Flow Rate 3 3 3 11/10/24 15:20 11/10/24 15:25 11/10/24 15:30 Temperature 97.4 F L Pulse Rate 71 77 76 Respiratory Rate 14 12 14 Blood Pressure 145/94 H 137/93 H 145/96 H Pulse Oximetry 93 93 91 Oxygen Delivery Me thod Nasal Cannula Nasal Cannula Nasal Cannula Oxygen Flow Rate 3 3 2 11/10/24 15:39 Temperature 97.4 F L Pulse Rate 73 Respiratory Rate 14 Blood Pressure 141/93 H Pulse Oximetry 92 Oxygen Delivery Me thod Nasal Cannula Oxygen Flow Rate 2 Assessment and Plan Assessment and plan (1) Status post reverse total replacement of left shoulder: Problem comment: 11/10/24; Dr. Sierra. Status: Acute Assessment and Plan: Hospital medicine team is happy to follow the patient through to discharge. We are expecting a routine postoperative course. I have reconciled home medications and completed our part of the discharge. -I will hold antihypertensives as indicated per our practice standard -I will check blood sugars as the patient has DM -I will spot check oxygen sats as there is a concern for hypoxia (anesthesia, FRANK, COPD, etc) -I will add cardiac monitoring with hx of CAD, HTN, Aortic dilation (2) Type 2 diabetes mellitus: Status: Chronic (3) Coronary artery disease: Problem comment: Normal cardiac stress test 07/2024 angio 01/30 without intervention at [facility], on medical management Status: Acute (4) Essential hypertension: Status: Chronic (5) Obstructive sleep apnea treated with continuous positive airway pressure (CPAP): Status: Chronic (6) SOB (shortness of breath) on exertion: Status: Acute
[2024-11-10] MEDS: POTASSIUM CHLORIDE 10 MEQ CAPSULE ER PO (18:43)
--- NOTE | 2024-11-10 19:20 | PC.NURSE ---
End of shift report: VSS. Pt remains on 2 L O2 via NC to keep O2 sats above 90%. Afebrile. Denies pain. Denies nausea. Tolerating regular diet. L shoulder dressing is C/D/I. L shoulder is in a sling, CMS is intact. Pt is up in the chair, call light within reach.
[2024-11-10] MEDS: CEFAZOLIN 2 GM in 0.9 % SODIUM CHLORIDE Mini-bag 100 ML IVPB (20:05)
[2024-11-10] MEDS: BENAZEPRIL 10 MG TABLET 20 MG PO (20:44)
[2024-11-10] MEDS: ATORVASTATIN CALCIUM 40 MG TABLET PO (20:44)
[2024-11-10] MEDS: MONTELUKAST 10 MG TABLET PO (20:44)
[2024-11-10] MEDS: METOPROLOL TARTRATE 25 MG TABLET PO (20:44)
[2024-11-10] MEDS: SENNOSIDES 1 TAB TABLET 2 TAB PO (20:44)
[2024-11-11 03:00] VITALS: BP 126/92; PULSE 59; RESP 18; TEMP 36.2; O2SAT 93
[2024-11-11] MEDS: CEFAZOLIN 2 GM in 0.9 % SODIUM CHLORIDE Mini-bag 100 ML IVPB (04:05)
--- NOTE | 2024-11-11 05:44 | PC.NURSE ---
[id number] Edgard slept well during the night, opted to sleep in recliner due to comfort. L arm in sling with Ice to operative site during the entire shift, no pain at all, educated pt on importance of starting pain medication as soon as block begins to briceño off. CMS intact to LUE, no N/V, voiding without difficulty and tolerating PO intake. up with SBA. dressing to L shoulder C/D/I. Pt on 1 LPM NC O2, declined to wear home cpap.
[2024-11-11] MEDS: ACETAMINOPHEN 500 MG TABLET 1000 MG PO (06:04)
[2024-11-11 06:57] LABS: Hematocrit 43.3 % (37.0-53.0); Hemoglobin* 14.1 gm/dL (13.5-17.5); Mean Corpuscular HGB Conc 33 gm/dL (32-36); Mean Corpuscular Hemoglobin 33 pg (26-34); Mean Corpuscular Volume 100 fL (80-100); Platelet Count* 183 K/uL (140-440); Red Blood Count 4.32 m/uL (4.30-5.90); White Blood Count* 8.14 K/uL (4.50-11.00)
[2024-11-11 07:00] VITALS: PULSE 62; O2SAT 94
[2024-11-11 07:07] LABS: Sodium* 135 mmol/L (135-149)
[2024-11-11 07:08] LABS: Potassium* 3.8 mmol/L (3.6-5.1)
[2024-11-11 07:10] LABS: Blood Urea Nitrogen* 20 mg/dL (7-30); Creatinine* 0.7 mg/dL (0.5-1.5); Estimated Glomerular Filt Rate 93 ml/min; Slide Review Reflex No
[2024-11-11 07:50] VITALS: BP 126/76; PULSE 73; RESP 16; TEMP 36.1; O2SAT 93
[2024-11-11] MEDS: METOPROLOL TARTRATE 25 MG TABLET PO (08:50)
--- NOTE | 2024-11-11 08:50 | PM.ORPN ---
Subjective Subjective Date Seen: 11/11/24 Principal diagnosis: Status postop day 1 left reverse total shoulder arthroplasty Interval history: Patient reports doing well. No acute events over night. Pain managed with scheduled and PRN medications, ice. DVT prophylaxis: New prescription of rivaroxaban due to newly found AFib preoperatively by Cardiology, prescribed by supervisor boilermaking shop. He will spanish moss picker his medication at his pharmacy and start medication today. Also, for DVT prophylaxis, SCDs, walking. Denies fevers, chills, aches, N/V, CP, SOB/EDDY, or lightheadedness. Ortho Exam Narrative Exam Narrative: -Patient appears comfortable in recliner; no apparent acute distress. Family present. Patient is in good spirits, joking with staff -Alert and oriented times 3 -Operative shoulder swollen; soft, supple tissues; no obvious erythema. Small area of ecchymosis distal anterior and medial humerus region. Warmth appropriate -Surgical dressing clean, dry, intact; no obvious drainage, no erythematous streaking peripheral to the bandage -Bilateral calves soft and supple; no significant swelling, edema, tenderness, erythema, discoloration, warmth, or palpable cords -2+ radial pulse, intact dermatomes and myotomes distally (5/5 strength) Const Vital Signs, click to edit/add: Vital Signs - 24 hr 11/10/24 09:17 11/10/24 09:45 11/10/24 09:50 Temperature 96.8 F L Pulse Rate 66 62 60 Pulse Rate [Pulse Oximeter] Respiratory Rate 18 16 16 Blood Pressure 138/95 H 146/95 H 131/74 Blood Pressure [Right Arm] Pulse Oximetry 94 94 95 Oxygen Delivery Method Room Air Room Air Nasal Cannula Oxygen Flow Rate 3 11/10/24 09:55 11/10/24 10:00 11/10/24 10:05 Temperature Pulse Rate 52 L 61 51 L Pulse Rate [Pulse Oximeter] Respiratory Rate 16 16 14 Blood Pressure 121/75 117/71 119/74 Blood Pressure [Right Arm] Pulse Oximetry 94 95 95 Oxygen Delivery Method Nasal Cannula Nasal Cannula Nasal Cannula Oxygen Flow Rate 3 3 3 11/10/24 10:15 11/10/24 10:30 11/10/24 10:45 Temperature Pulse Rate 54 L 51 L 50 L Pulse Rate [Pulse Oximeter] Respiratory Rate 16 16 16 Blood Pressure 119/73 121/71 123/80 Blood Pressure [Right Arm] Pulse Oximetry 94 93 95 Oxygen Delivery Method Nasal Cannula Nasal Cannula Nasal Cannula Oxygen Flow Rate 3 3 3 11/10/24 11:00 11/10/24 11:30 11/10/24 11:50 Temperature Pulse Rate 52 L 48 L 49 L Pulse Rate [Pulse Oximeter] Respiratory Rate 16 16 14 Blood Pressure 120/74 129/93 H 129/76 Blood Pressure [Right Arm] Pulse Oximetry 96 94 96 Oxygen Delivery Method Nasal Cannula Nasal Cannula Nasal Cannula Oxygen Flow Rate 3 3 3 11/10/24 15:03 11/10/24 15:10 11/10/24 15:15 Temperature 97.6 F Pulse Rate 44 L 78 79 Pulse Rate [Pulse Oximeter] Respiratory Rate 12 12 14 Blood Pressure 142/97 H 147/85 H 135/91 H Blood Pressure [Right Arm] Pulse Oximetry 93 92 92 Oxygen Delivery Method Nasal Cannula Nasal Cannula Nasal Cannula Oxygen Flow Rate 3 3 3 11/10/24 15:20 11/10/24 15:25 11/10/24 15:30 Temperature 97.4 F L Pulse Rate 71 77 76 Pulse Rate [Pulse Oximeter] Respiratory Rate 14 12 14 Blood Pressure 145/94 H 137/93 H 145/96 H Blood Pressure [Right Arm] Pulse Oximetry 93 93 91 Oxygen Delivery Method Nasal Cannula Nasal Cannula Nasal Cannula Oxygen Flow Rate 3 3 2 11/10/24 15:39 11/10/24 15:48 11/10/24 16:05 Temperature 97.4 F L 97.2 F L 97.1 F L Pulse Rate 73 76 73 Pulse Rate [Pulse Oximeter] Respiratory Rate 14 18 16 Blood Pressure 141/93 H 131/88 145/82 H Blood Pressure [Right Arm] Pulse Oximetry 92 90 90 Oxygen Delivery Method Nasal Cannula Nasal Cannula Nasal Cannula Oxygen Flow Rate 2 3 2 11/10/24 16:20 11/10/24 16:35 11/10/24 16:50 Temperature 97.4 F L 96.4 F L 96.8 F L Pulse Rate 74 75 69 Pulse Rate [Pulse Oximeter] Respiratory Rate 18 16 16 Blood Pressure 136/88 144/89 H 145/92 H Blood Pressure [Right Arm] Pulse Oximetry 91 90 92 Oxygen Delivery Method Nasal Cannula Nasal Cannula Nasal Cannula Oxygen Flow Rate 2 2 2 11/10/24 17:20 11/10/24 17:50 11/10/24 18:50 Temperature 96.8 F L 96.2 F L 96.3 F L Pulse Rate 80 95 82 Pulse Rate [Pulse Oximeter] Respiratory Rate 16 16 16 Blood Pressure 149/87 H 134/84 134/84 Blood Pressure [Right Arm] Pulse Oximetry 94 95 92 Oxygen Delivery Method Nasal Cannula Nasal Cannula Nasal Cannula Oxygen Flow Rate 2 2 2 11/10/24 20:00 11/10/24 21:00 11/10/24 23:00 Temperature 96.7 F L 96.2 F L Pulse Rate 70 72 Pulse Rate [Pulse Oximeter] Respiratory Rate 16 16 16 Blood Pressure 151/86 H 155/94 H Blood Pressure [Right Arm] Pulse Oximetry 93 93 92 Oxygen Delivery Method Nasal Cannula Nasal Cannula Nasal Cannula Oxygen Flow Rate 2 2 2 11/10/24 23:00 11/10/24 23:00 11/11/24 03:00 Temperature 97.4 F L 97.2 F L Pulse Rate 57 L Pulse Rate [Pulse Oximeter] 71 59 L Respiratory Rate 16 18 Blood Pressure Blood Pressure [Right Arm] 129/88 126/92 H Pulse Oximetry 92 93 Oxygen Delivery Method Nasal Cannula Nasal Cannula Oxygen Flow Rate 2 1 Assessment and Plan Assessment and plan (1) Status post reverse total replacement of left shoulder: Problem details: 11/10/24; Dr. Sierra. Status: Acute (2) Type 2 diabetes mellitus: Status: Chronic (3) Coronary artery disease: Problem details: Normal cardiac stress test 07/2024 angio 01/30 without intervention at [facility], on medical management Status: Acute (4) Essential hypertension: Status: Chronic (5) Obstructive sleep apnea treated with continuous positive airway pressure (CPAP): Status: Chronic (6) SOB (shortness of breath) on exertion: Status: Acute Plan - Complete 23 hour perioperative antibiotics. - PT/OT consult for education and assistance. - Social work consult for discharge planning - Prescribed analgesics as needed - DVT prophylaxis: Rivaroxaban 10 mg once daily starting when he gets home today, 11/11/2024 as prescribed by supervisor boilermaking shop due to new found AFib, walking, and SCDs - Anticipation is for discharge to home with family/friends today 11/11/2024 if the patient remains medically stable, pain is controlled, and they are safe with mobilization.
[2024-11-11] MEDS: POTASSIUM CHLORIDE 10 MEQ CAPSULE ER PO (08:51)
[2024-11-11] MEDS: AMLODIPINE 10 MG TABLET PO (08:51)
[2024-11-11] MEDS: SENNOSIDES 1 TAB TABLET 2 TAB PO (08:51)
[2024-11-11] MEDS: METFORMIN ER 500 MG PO (08:51)
[2024-11-11] MEDS: FUROSEMIDE 20 MG TABLET 40 MG PO (08:51)
[2024-11-11] MEDS: BENAZEPRIL 10 MG TABLET 20 MG PO (09:54)
--- NOTE | 2024-11-11 10:51 | PC.NURSE ---
Pt doing well this morning. VSS. Denies pain. Sating well on room air. Tolerated breakfast. Ambulating well with minimal assist. Surgical dressing remains clean, dry and intact. Pt belongings and discharge instructions reviewed and signed. Education provided, no questions or concerns at this time. Pt discharged home via daughter at 1050.
--- NOTE | 2024-11-11 11:00 | PC.SOCIAL ---
Discharge Planning: SW met with patient and his daughter to determine if there are any resources/supports needed for home. Patient states that he has everything taken care of that he needs and has no concerns at this time.
== END 2024-11-11 10:53 | disposition home or self-care (01) ==
LOC: OR 08:14 → MEDSURG 08:14
PROVIDERS: PCP Family Medicine; Visit Provider Orthopaedic Surgery Sports Medicine
PROC: 0RRJ0JZ Replacement of Right Shoulder Joint with Synthetic Substitute, Open Approach (ICD-10-PCS; CPT 23472; principal; 2024-11-10 09:45)
DX: M19.012 Primary osteoarthritis, left shoulder (principal); G89.18 Other acute postprocedural pain; I48.91 Unspecified atrial fibrillation; Z79.82 Long term (current) use of aspirin; E11.9 Type 2 diabetes mellitus without complications; Z79.84 Long term (current) use of oral hypoglycemic drugs; R06.02 Shortness of breath; G47.33 Obstructive sleep apnea (adult) (pediatric); E66.9 Obesity, unspecified; I10 Essential (primary) hypertension; I25.10 Atherosclerotic heart disease of native coronary artery without angina pectoris; J45.30 Mild persistent asthma, uncomplicated; I77.810 Thoracic aortic ectasia; Z85.51 Personal history of malignant neoplasm of bladder; E78.5 Hyperlipidemia, unspecified
CPT/HCPCS: 23472; 01638; 36415; 64415; 73030; 76942; 82565; 82962; 84132; 84295; 84520; 85027; 97110; 97165; 97530; 97535; 99100; A9270; C1713; C1776; J0330; J0665; J0666; J0690; J1100; J2250; J2371; J2405; J2704; J3010; J3490; J7120; L3670

== ENCOUNTER 2024-12-15 08:46 | Outpatient (CLI) | payer MEDICARE, BC, SELFPAY | END 2024-12-15 08:47 | disposition home or self-care (01) | LOC: NFLDREF 14:58 | PROVIDERS: PCP Family Medicine; Referring Provider Family Medicine; Visit Provider Family Medicine | DX: E11.29 Type 2 diabetes mellitus with other diabetic kidney complication (principal); R80.9 Proteinuria, unspecified; I10 Essential (primary) hypertension; E55.9 Vitamin D deficiency, unspecified; Z79.899 Other long term (current) drug therapy | CPT/HCPCS: 80053; 82043; 82306; 82570; 82607 ==

== ENCOUNTER 2024-12-16 13:45 | Outpatient (CLI) | payer MEDICARE, BC, SELFPAY | END 2024-12-16 13:46 | disposition home or self-care (01) | PROVIDERS: PCP Family Medicine; Referring Provider Family Medicine; Visit Provider Family Medicine | DX: E11.29 Type 2 diabetes mellitus with other diabetic kidney complication (principal); R80.9 Proteinuria, unspecified; I10 Essential (primary) hypertension; I48.19 Other persistent atrial fibrillation; J45.30 Mild persistent asthma, uncomplicated | CPT/HCPCS: 82043; 82570 ==

== ENCOUNTER 2025-01-13 03:06 | Outpatient (CLI) | payer MEDICARE, BC, SELFPAY | END 2025-01-13 03:07 | disposition home or self-care (01) | PROVIDERS: PCP Family Medicine; Visit Provider Family Medicine | DX: R53.1 Weakness (principal) | CPT/HCPCS: A0998 ==

== ENCOUNTER 2025-01-28 13:54 | Outpatient (CLI) | payer MEDICARE, BC, SELFPAY | END 2025-01-28 13:55 | disposition home or self-care (01) | LOC: CT 13:55 | PROVIDERS: PCP Family Medicine; Visit Provider Orthopaedic Surgery Sports Medicine | DX: Z01.818 Encounter for other preprocedural examination (principal); M19.011 Primary osteoarthritis, right shoulder; S76.112A Strain of left quadriceps muscle, fascia and tendon, initial encounter | CPT/HCPCS: 73200 ==

== ENCOUNTER 2025-03-04 11:01 | Outpatient (CLI) | payer MEDICARE, BC, SELFPAY | END 2025-03-04 11:02 | disposition home or self-care (01) | LOC: NFLDREF 11:02 | PROVIDERS: PCP Family Medicine; Visit Provider Family Medicine | DX: I10 Essential (primary) hypertension (principal) | CPT/HCPCS: 80048 ==

== ENCOUNTER 2025-03-18 08:59 | Outpatient (CLI) | payer MEDICARE, BC, SELFPAY ==
--- NOTE | 2025-03-18 09:15 | CRLHL7_ITS ---
For Patients: As a result of the Century Cures Act, medical imaging exams and procedure reports are released immediately into your electronic medical record. You may view this report before your referring provider. If you have questions, please contact your health care provider. INDICATION : Cervical radiculopathy. TECHNIQUE : Cervical spine MRI without contrast. COMPARISON: COMPARISONCervical spine radiographs from 03/17/2025. FINDINGS: Normal cervical lordotic curve. No recent compression fracture or marrow replacing process. Patchy T2 hyperintensity within the brainstem, typical for chronic microvascular ischemic change. Scattered foci of susceptibility artifact within the cerebellar hemispheres, compatible with microhemorrhages. Few tiny chronic cerebellar infarcts. Cervical cord signal is normal. No extraspinal soft tissue abnormalities. Discs/Endplates: Osseous fusion on the C6-7 interspace, possibly surgical. Mild cervical disc degeneration elsewhere. Findings at individual levels as follows: Craniocervical junction: Alignment is maintained. C2-C3: Shallow central protrusion which flattens the thecal sac. No spinal canal stenosis. Minimal facet arthrosis. No neural foraminal stenosis. C3-C4: Shallow disc osteophyte complex which flattens the thecal sac without spinal canal stenosis. Bilateral uncovertebral arthrosis and high-grade right facet arthrosis. Mild left and moderate right neural foraminal stenosis. C4-C5: Trace anterolisthesis. Shallow disc osteophyte complex which flattens the thecal sac. Ligamentum flavum buckling. Mild spinal canal stenosis. Bilateral uncovertebral and facet arthrosis with moderate left and advanced right neural foraminal stenosis. Compression of the right C5 nerve root. C5-C6: A broad-based disc osteophyte complex contacts the ventral cord. Ligamentum flavum buckling. Moderate spinal canal stenosis. Bilateral uncovertebral and facet arthrosis with moderate right and advanced left neural foraminal stenosis. Compression of the exiting left C6 nerve root. C6-C7: Left foraminal endplate spurring. Mild left neural foraminal stenosis. No right neural foraminal stenosis or spinal canal stenosis. C7-T1: Shallow disc osteophyte complex. Left-sided facet arthrosis. Mild left neural foraminal stenosis. No right neural foraminal stenosis or spinal canal stenosis. T1-2: Shallow disc osteophyte complex. No spinal canal or neural foraminal stenosis. IMPRESSION: 1. No acute fracture or marrow replacing process. 2. Moderate spinal canal stenosis C5-6. No high-grade spinal canal narrowing elsewhere. 3. High-grade neural foraminal stenosis C4-5 on the right and C5-6 on the left with compression of exiting nerve roots at these levels. [id number] neural foraminal narrowing elsewhere. 4. 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 Dictated by Rinku Way MD @ 03/19/2025 10:32:22 AM (Electronically Signed)
== END 2025-03-18 09:00 | disposition home or self-care (01) ==
LOC: MRI 09:00
PROVIDERS: PCP Family Medicine; Visit Provider Orthopaedic Surgery Sports Medicine
DX: M54.12 Radiculopathy, cervical region (principal); M48.02 Spinal stenosis, cervical region; I63.9 Cerebral infarction, unspecified
CPT/HCPCS: 72141